=== PATIENT | female | born 1980 | race Caucasian/White ===

== ENCOUNTER 2017-11-07 21:40 | Emergency (ER) | payer MEDICAID ==
[~2017-11-07] VITALS: Ht 154.9 cm; Wt 56.7 kg
[2017-11-07 22:23] VITALS: BP 93/51
[2017-11-07] MEDS ORDERED: IBUPROFEN 600 MG TABLET PO ONE ×2 (22:51→23:00)
== END 2017-11-07 23:35 | disposition home or self-care (01) ==
LOC: ER 21:40
DX: S90.121A Contusion of right lesser toe(s) without damage to nail, initial encounter (principal); Z88.5 Allergy status to narcotic agent; Z88.6 Allergy status to analgesic agent; W22.03XA Walked into furniture, initial encounter; Y93.01 Activity, walking, marching and hiking; Y92.89 Other specified places as the place of occurrence of the external cause; Y99.8 Other external cause status
CPT/HCPCS: 73660; 99284; A4606; Z7610

== ENCOUNTER 2019-11-04 07:59 | Emergency (ER) | payer MEDICAID ==
[~2019-11-04] VITALS: Ht 152.4 cm; Wt 64.0 kg
[2019-11-04 08:04] VITALS: BP 100/64
== END 2019-11-04 08:16 | disposition home or self-care (01) ==
LOC: ER 08:02
DX: J11.1 Influenza due to unidentified influenza virus with other respiratory manifestations (principal); R05 Cough; R51 Headache; M79.18 Myalgia, other site; R09.81 Nasal congestion; Z98.890 Other specified postprocedural states; Z88.6 Allergy status to analgesic agent; Z88.5 Allergy status to narcotic agent

== ENCOUNTER 2019-11-07 09:17 | Emergency (ER) | payer MEDICAID ==
[~2019-11-07] VITALS: Ht 154.9 cm; Wt 63.5 kg
[2019-11-07 09:30] VITALS: BP 109/69
== END 2019-11-07 09:48 | disposition home or self-care (01) ==
LOC: ER 09:17
DX: J11.1 Influenza due to unidentified influenza virus with other respiratory manifestations (principal); Z98.890 Other specified postprocedural states; Z88.6 Allergy status to analgesic agent; Z88.5 Allergy status to narcotic agent

== ENCOUNTER 2023-09-15 16:44 | Emergency (ER) | payer MEDICAID ==
[~2023-09-15] VITALS: Ht 157.5 cm; Wt 61.2 kg
[2023-09-15 16:58] VITALS: TEMP 98.3
[2023-09-15] MEDS ORDERED: KETOROLAC TROMETHAMINE INJ 60 MG/2 ML VIAL IM ONE (17:30)
[2023-09-15] MEDS ORDERED: KETOROLAC TROMETHAMINE INJ 30 MG/ML VIAL ONE (17:47)
[2023-09-15 19:14] VITALS: BP 110/70; O2SAT 99
== END 2023-09-15 19:16 | disposition home or self-care (01) ==
LOC: ER 16:53
DX: Z88.8 Allergy status to other drugs, medicaments and biological substances (principal); S06.0XAA Concussion with loss of consciousness status unknown, initial encounter; V03.90XA Pedestrian on foot injured in collision with car, pick-up truck or van, unspecified whether traffic or nontraffic accident, initial encounter; Y93.89 Activity, other specified; Y92.89 Other specified places as the place of occurrence of the external cause; Y99.8 Other external cause status
CPT/HCPCS: 99285; 72125; 96372; 73552; 73090; 70450; J1885